=== PATIENT | female | born 1990 | race Caucasian/White ===

== ENCOUNTER → 2022-03-20 12:00 | Outpatient (BNVA) | payer OTHER, SELFPAY | PROVIDERS: Visit Provider Family Medicine | DX: E03.9 Hypothyroidism, unspecified (principal); R53.83 Other fatigue; L98.9 Disorder of the skin and subcutaneous tissue, unspecified; Z79.899 Other long term (current) drug therapy; Z86.32 Personal history of gestational diabetes | CPT/HCPCS: 80053; 80061; 82306; 82607; 83036; 83540; 84439; 84443; 84481; 85025; 85610 ==

== ENCOUNTER → 2022-03-29 18:10 | Outpatient (BNVA) | payer OTHER, SELFPAY | PROVIDERS: PCP Family Medicine; Visit Provider Family Medicine | DX: M25.50 Pain in unspecified joint (principal); R53.83 Other fatigue; M79.7 Fibromyalgia | CPT/HCPCS: 84550; 85025; 85651; 86038; 86431; 86664; 86665 ==

== ENCOUNTER → 2022-07-13 09:30 | Outpatient (BNVA) | payer OTHER, SELFPAY | PROVIDERS: PCP Family Medicine; Visit Provider Family Medicine | DX: E03.9 Hypothyroidism, unspecified (principal); F32.A Depression, unspecified; M25.50 Pain in unspecified joint; M79.7 Fibromyalgia | CPT/HCPCS: 80053; 84443; 84550; 85651; 86038; 86431 ==

== ENCOUNTER → 2022-10-09 09:01 | Outpatient (BNVA) | payer OTHER, SELFPAY | PROVIDERS: PCP Family Medicine; Visit Provider Nurse Practitioner Family | DX: Z20.822 Contact with and (suspected) exposure to COVID-19 (principal); R50.9 Fever, unspecified; U07.1 COVID-19 | CPT/HCPCS: 87400; 87426 ==

== ENCOUNTER → 2022-11-24 12:14 | Outpatient (BNVA) | payer OTHER, SELFPAY | PROVIDERS: PCP Family Medicine; Visit Provider Family Medicine | DX: J32.0 Chronic maxillary sinusitis (principal); M79.7 Fibromyalgia; M10.9 Gout, unspecified | CPT/HCPCS: 84550 ==

== ENCOUNTER → 2023-02-15 09:13 | Outpatient (BNVA) | payer OTHER, SELFPAY | PROVIDERS: PCP Family Medicine; Visit Provider Nurse Practitioner Family | DX: M79.7 Fibromyalgia (principal); E03.9 Hypothyroidism, unspecified; M10.9 Gout, unspecified | CPT/HCPCS: 80053; 82306; 82607; 84443; 84550; 85025 ==

== ENCOUNTER → 2023-03-29 09:24 | Outpatient (BNVA) | payer OTHER, SELFPAY | PROVIDERS: PCP Family Medicine; Visit Provider Nurse Practitioner Family | DX: D72.829 Elevated white blood cell count, unspecified (principal) | CPT/HCPCS: 85025 ==

== ENCOUNTER → 2023-06-06 17:30 | Outpatient (BNVA) | payer OTHER, SELFPAY | PROVIDERS: PCP Family Medicine; Visit Provider Family Medicine | DX: M10.9 Gout, unspecified (principal); M79.2 Neuralgia and neuritis, unspecified; M79.672 Pain in left foot; M79.671 Pain in right foot | CPT/HCPCS: 80053; 82607; 83036; 84443; 84550 ==

== ENCOUNTER → 2023-08-03 12:24 | Outpatient (BNVA) | payer OTHER, SELFPAY | PROVIDERS: PCP Family Medicine; Visit Provider Nurse Practitioner Family | DX: N30.00 Acute cystitis without hematuria (principal); B37.31 Acute candidiasis of vulva and vagina | CPT/HCPCS: 81003 ==

== ENCOUNTER → 2023-10-09 16:23 | Outpatient (BNVA) | payer OTHER, SELFPAY | PROVIDERS: PCP Family Medicine; Visit Provider Family Medicine | DX: R30.0 Dysuria (principal) | CPT/HCPCS: 81000; 81003; 87086 ==

== ENCOUNTER → 2023-10-23 12:00 | Outpatient (BNVA) | payer OTHER, SELFPAY | PROVIDERS: PCP Family Medicine; Visit Provider Family Medicine | DX: R53.83 Other fatigue (principal); E03.9 Hypothyroidism, unspecified; Z86.32 Personal history of gestational diabetes; M79.7 Fibromyalgia | CPT/HCPCS: 82306; 82533; 82607; 83540; 84443; 85025 ==

== ENCOUNTER → 2024-01-31 15:12 | Outpatient (BNVA) | payer OTHER, SELFPAY | PROVIDERS: PCP Family Medicine; Visit Provider Family Medicine | DX: E03.9 Hypothyroidism, unspecified (principal) | CPT/HCPCS: 84443 ==

== ENCOUNTER → 2024-03-07 15:22 | Outpatient (BNVA) | payer OTHER, SELFPAY | PROVIDERS: PCP Family Medicine; Visit Provider Nurse Practitioner Family | DX: R05.9 Cough, unspecified (principal) | CPT/HCPCS: 87426 ==

== ENCOUNTER 2024-06-04 20:00 | Outpatient (CLI) | payer OTHER, SELFPAY | END 2024-06-04 20:01 | disposition home or self-care (01) | LOC: SLEEP 06-05 00:18 | PROVIDERS: PCP Family Medicine; Visit Provider Family Medicine | DX: G47.33 Obstructive sleep apnea (adult) (pediatric) (principal); G47.61 Periodic limb movement disorder | CPT/HCPCS: 95810 ==

== ENCOUNTER 2024-07-04 15:19 | Emergency (ER) | payer OTHER, SELFPAY ==
[2024-07-04 15:36] VITALS: BP 115/74; PULSE 84; RESP 14; TEMP 37; O2SAT 96
--- NOTE | 2024-07-04 15:53 | ED_ITS ---
HPI - General Adult 2 General: Chief complaint: General Medical Stated complaint: pain in left arm.& leg / 20 weeks Time Seen by Provider: 07/04/24 15:25 History of Present Illness: 34-year-old female presents emergency ro om with complaints of an odd sensation in the left arm and the leg. Throbbing pain into the calf pressure sensation. No shortness of breath no chest pain has not really had a headache no vision changes. No history of any strokes she did have preeclampsia issues with her previous and they have her on aspirin daily no recent medication changes she has not had any difficulty with hypertension up to this point. No other specific symptoms or problems. Associated symptoms: Deny chest pain, dyspnea or rash Related Data Home Medications Medication Instructions Recorded Confirmed cariprazine 3 mg capsule (Vraylar) 3 mg PO DAILY 03/20/22 03/07/24 clonazepam 1 mg tablet 1 mg PO TID 03/20/22 03/07/24 Previous Rx's Medication Instructions Recorded albuterol sulfate 90 mcg/actuation 2 puff inhalation QID PRN 10/09/22 aerosol inhaler shortness of breath or wheezing #8.5 grams allopurinol 100 mg tablet 100 mg PO DAILY #30 tabs 11/24/22 fluconazole 150 mg tablet 150 mg PO Q3D 2 doses #2 tabs 08/03/23 sulfamethoxazole 800 1 tab PO BID 7 days #14 tabs 08/03/23 mg-trimethoprim 160 mg tablet (Bactrim DS) phenazopyridine 100 mg tablet 100 mg PO TID #20 tabs 10/09/23 (Pyridium) sulfamethoxazole 800 1 tab PO BID #14 tabs 10/09/23 mg-trimethoprim 160 mg tablet (Bactrim DS) milnacipran 12.5 mg (5)-25 See Rx Instructions PO PER PKG DIR 10/23/23 mg(8)-50mg(42) tablets in a dose #55 ea pack (Savella) pregabalin 150 mg capsule 150 mg PO TID #90 caps 10/23/23 ergocalciferol (vitamin D2) 1,250 1,250 mcg PO .WEEKLY #4 caps 10/31/23 mcg (50,000 unit) capsule milnacipran 50 mg tablet (Savella) 100 mg (2 x 50 mg) PO BID #60 tabs 12/28/23 levothyroxine 75 mcg tablet See Rx Instructions .Route 02/06/24 .COMPLEX #90 tabs ondansetron 4 mg disintegrating 4 mg PO QID PRN nausea and 02/27/24 tablet vomiting #20 tabs Allergies Allergy/AdvReac Type Severity Reaction Status Date / Time Penicillins Allergy Intermediate ALGY-Rash Verified 07/04/24 15:40 Review of Systems 2 Const: Denies: fever(s) or chills Card: Denies: chest pain Resp: Denies: dyspnea GI: Denies: abdominal pain : Denies: dysuria, urinary frequency or urinary urgency Musc: Denies: neck pain or back pain Skin/Breast: Denies: rash PFSH ED 2 PFSH: Medical History Pre-eclampsia in third trimester Hypothyroid Anxiety Depression Hx gestational diabetes Hx of pre-term labor Surgical History History of esophagogastroduodenoscopy (EGD) (~08/2021) Family History Grandfather Cancer lung Grandmother Cancer bladder, colon Father Hypertension Mother Hypertension Denies family history of Diabetes CAD (coronary artery disease) Clotting disorder Psychiatric illness Chronic kidney disease (CKD) Bleeding disorder Stroke Social History Smoking and tobacco/nicotine status: current every day tobacco/nicotine user (vapes) Second hand smoke exposure: No Alcohol intake: current Alcohol intake frequency: holidays/special occasions only Substance/Drug Use: current Substance/Drug use frequency: few times a month Adopted: No Caregiver/support person: Yes Lives independently: Yes Household members: spouse and children Marital status: Highest education level completed: Bachelor's Degree service: No Current occupational status: unemployed Current gender identity: Female Special gerald needs: No Agree to transfusion: Yes Physical Exam 2 Const: GENERAL APPEARANCE: cooperative ORIENTATION/CONSCIOUSNESS: Yes awake, Yes oriented to person, Yes oriented to place and Yes oriented to time HENMT: COMMON NORMALS: normocephalic, atraumatic and hearing grossly normal bilaterally HEAD & SCALP: normocephalic and atraumatic Resp: COMMON NORMALS: normal respiratory effort, No retractions, No use of accessory muscles and clear to auscultation bilaterally AUSCULTATION: clear to auscultation bilaterally Cardio: COMMON NORMALS: regular rate, regular rhythm and No murmurs present (Cardio) RATE: regular rate RHYTHM: regular rhythm GI: COMMON NORMALS: Soft to palpation and No hepatosplenomegaly present A USCULTATION: Yes normoactive bowel sounds PALPATION: Yes Soft to palpation, No Tenderness to palpation present (GI), No Guarding due to palpation present (GI) and Yes No hepatosplenomegaly present Extremity: COMMON NORMALS: normal to inspection, capillary refill normal, no clubbing, cyanosis or edema, no calf tenderness and no pedal edema OTHER: No focal neurologic deficits noted full range of motion in all extremities normal strength dorsoplantar flexion and 5 of 5 in lower extremities neurovascularly distally the extremities are intact. Neuro: SENSORIUM/ORIENTATION: Yes oriented to person, Yes oriented to place and Yes oriented to time OTHER: Abbreviated NIH score is negative. Skin: COMMON NORMALS: no rashes or lesions noted GENERAL SKIN EXAM: no rashes or lesions noted Course 2 Vital Signs: Vital signs: Vital Signs Temperature 98.6 F 07/04/24 15:36 Pulse Rate 75 07/04/24 18:00 Respiratory Rate 16 07/04/24 18:00 Blood Pressure 110/81 07/04/24 18:00 Pulse Oximetry 97 07/04/24 18:00 Oxygen Delivery Me thod Room Air 07/04/24 17:26 MDM - General Adult Medical Decision Making No focal neurologic deficits noted no sign of nerve impingement at this time no sign of stroke. Neurovascular is intact. There is no sign of thrombosis. Will discharge the patient over to OB discussed Dr. Villagran will further evaluate. Patient related that she had a problem with preeclampsia with her previous her blood pressure is good laboratory tests are all normal liver functions kidney function platelets and hemoglobin are all good. She was able to ambulate without difficulty. If this persists she may need to follow-up with her primary care doctor for further evaluation. No emergent findings at this time. Medical Records I reviewed the patient's medical records. Lab Data I reviewed the patient's lab results. 07/04/24 17:30 07/04/24 17:30 Laboratory Results WBC 9.33 10^3/uL (3.29-11.43) 07/04/24 17: RBC 4.24 10^6/uL (3.85-5.65) 07/04/24 17:30 Hgb 11.90 g/dL (11.27-16.99) 07/04/24 17:30 Hct 36.9 % (36-47) 07/04/24 17:30 MCV 87.0 fl (85-98) 07/04/24 17:30 MCH 28.1 pg (27-33) 07/04/24 17: MCHC 32.2 g/dL (30-55) 07/04/24 17:30 RDW 13.7 % (12.1-15.1) 07/04/24 17:30 Plt Count 331 10^3/cmm (157-399) 07/04/24 17:30 MPV 10.4 fL (7.4-10.4) 07/04/24 17:30 Neut % (Auto) 65.1 % 07/04/24 17:30 Lymph % (Auto) 27.0 % 07/04/24 17:30 [place] % (Auto) 7.2 % 07/04/24 17:30 Eos % (Auto) 0.1 % 07/04/24 17:30 Baso % (Auto) 0.2 % 07/04/24 17:30 Neut # (Auto) 6.07 10^3/uL (1.8-7.7) 07/04/24 17:30 Lymph # (Auto) 2.5 10^3/uL (0.8-4.8) 07/04/24 17:30 [place] # (Auto) 0.7 10^3/uL (0.2-0.9) 07/04/24 17:30 Eos # (Auto) 0.0 10^3/uL (0.0-0.8) 07/04/24 17:30 Baso # (Auto) 0.0 10^3/uL (0.0-0.1) 07/04/24 17:30 Nucleated RBC % (auto) 0 % 07/04/24 17: Nucleated RBCs # 0.0 /100WBC 07/04/24 17:30 Sodium 134 mmol/L (136-145) L 07/04/24 17:30 Potassium 4.1 mmol/L (3.5-5.1) 07/04/24 17:30 Chloride 101 mmol/L (98-107) 07/04/24 17: Carbon Dioxide 22 mmol/L (22-29) 07/04/24 17:30 Anion Gap 15.1 (5-19) 07/04/24 17:30 BUN 6 mg/dL (6-20) 07/04/24 17:30 Creatinine 0.6 mg/dL (0.5-0.9) 07/04/24 17:30 GFR Calculation 115.9 mL/min (90-130) 07/04/24 17:30 Glucose 87 mg/dL (65-115) 07/04/24 17:30 Calculated Osmolality 275 mOsm/kg (285-295) L 07/04/24 17:30 Calcium 9.4 mg/dL (8.5-10.5) 07/04/24 17:30 Total Bilirubin 0.2 mg/dL (0.15-1.2) 07/04/24 17:30 AST 14 U/L (0-32) 07/04/24 17:30 ALT 11 U/L (0-33) 07/04/24 17:30 Alkaline Phosphatase 97 U/L (35-105) 07/04/24 17:30 Total Protein 6.4 g/dL (6.6-8.7) L 07/04/24 17:30 Albumin 3.7 g/dL (3.5-5.2) 07/04/24 17:30 Globulin 2.7 g/dL (1.3-4.6) 07/04/24 17:30 Urine Color Yellow (Yellow) 07/04/24 17:00 Urine Appearance Clear (CLEAR) 07/04/24 17:00 Urine pH 6.5 (5-7) 07/04/24 17:00 Ur Specific [place] 1.015 (1.005-1.030) 07/04/24 17:00 Urine Protein Negative (Negative) 07/04/24 17:00 Urine Glucose (UA) Negative (Normal) 07/04/24 17:00 Urine Ketones Negative (Negative) 07/04/24 17:00 Urine Blood Negative (Negative) 07/04/24 17:00 Urine Nitrate Negative (Negative) 07/04/24 17:00 Urine Bilirubin Negative (Negative) 07/04/24 17:00 Urine Urobilinogen 1.0 mg/dL (Negative) 07/04/24 17:00 Ur Leukocyte Esterase Negative (Negative) 07/04/24 17:00 Urine RBC 0-2 /hpf (0-2) 07/04/24 17:00 Urine WBC 0-5 /hpf (0-5) 07/04/24 17:00 Ur Squamous Epith Cells 0-5 /hpf (0-5) 07/04/24 17:00 Amorphous Sediment Not Reportable 07/04/24 17:00 Urine Bacteria None seen /hpf (NONE) 07/04/24 17:00 Hyaline Casts 0.40 /lpf 07/04/24 17:00 No radiology studies performed this visit Discharge Plan Discharge Patient Disposition: Home Clinical Impression: Lower extremity pain Qualifiers: Laterality: left Qualified Code(s): M79.605 - Pain in left leg Upper extremity pain Qualifiers: Laterality: left Qualified Code(s): M79.602 - Pain in left arm Condition: Stable Prescriptions: No Action clonazepam 1 mg tablet 1 mg PO TID Vraylar 3 mg capsule 3 mg PO DAILY sulfamethoxazole-trimethoprim [Bactrim DS] 800-160 mg tablet 1 tab PO BID Qty: 14 0RF phenazopyridine [Pyridium] 100 mg tablet 100 mg PO TID Qty: 20 0RF pregabalin 150 mg capsule 150 mg PO TID Qty: 90 2RF Savella 12.5 mg (5)-25 mg(8)-50 mg(42) tablets,dose pack See Rx Instructions PO PER PKG DIR Qty: 55 0RF Rx Instructions: PO PER PKG DIR ondansetron 4 mg tablet,disintegrating 4 mg PO QID PRN (Reason: nausea and vomiting) Qty: 20 0RF albuterol sulfate 90 mcg/actuation HFA aerosol inhaler 2 puff inhalation QID PRN (Reason: shortness of breath or wheezing) Qty: 8.5 0RF allopurinol 100 mg tablet 100 mg PO DAILY Qty: 30 3RF fluconazole 150 mg tablet 150 mg PO Q3D Qty: 2 0RF Rx Instructions: may repeat second dose 72 hrs after first dose if symptoms persist sulfamethoxazole-trimethoprim [Bactrim DS] 800-160 mg tablet 1 tab PO BID 7 Days Qty: 14 0RF ergocalciferol (vitamin D2) 1,250 mcg (50,000 unit) capsule 1,250 mcg PO .WEEKLY Qty: 4 3RF Rx Instructions: ONE CAP ONCE WEEKLY Savella 50 mg tablet 100 mg PO BID Qty: 60 3RF levothyroxine 75 mcg tablet See Rx Instructions .ROUTE .COMPLEX Qty: 90 1RF Dose Instruction: TAKE ONE TABLET BY MOUTH EVERY DAY Rx Instructions: TAKE ONE TABLET BY MOUTH EVERY DAY Discharge Orders: Discharge ED (Routine); Ordered 07/04/24 Ordered By: Daniel Betancourt Referrals: Shanta Elizabeth MD [Primary Care Provider] - Discharge Diet: Usual diet Discharge Activity: Increase activity as tolerated Patient Instructions: Opioid Safety, Pain Management Activity Restrictions/Additional Instructions: Thank you for choosing [facility] for your healthcare needs today. It is very important that you follow up as instructed or that you return to the Emergency Department should you have concerns or if your condition changes or worsens in any way. You were seen in the emergency room with complaints of left arm and leg pain. On exam there is no indication of thrombosis (clot). Neurologically everything is intact there is no indication of any vascular compromise. There is no indication of stroke. Recommend that you proceed to OB for further evaluation after leaving the emergency room. If symptoms persist follow-up with your primary care doctor. Coding Level of Care Code ED Hardware Engineer for David You
[2024-07-04 16:00] VITALS: BP 136/76; PULSE 74; RESP 18; O2SAT 94
[2024-07-04 17:26] VITALS: BP 124/80; RESP 17; O2SAT 98
[2024-07-04 17:36] LABS: Bilirubin Urine Negative (Negative); Blood Urine Negative (Negative); Glucose Urine UA Negative (Normal); Ketones Urine Negative (Negative); Leukocyte Esterase Urine Negative (Negative); Nitrate Urine Negative (Negative); Protein Urine Negative (Negative); Specific Gravity, Urine 1.015 (1.005-1.030); Urine Appearance Clear (CLEAR); Urine Color Yellow (Yellow); pH Urine 6.5 (5-7)
[2024-07-04 17:41] LABS: Add Urine Microscopic? YES; Bacteria Urine None Seen /hpf; RBC Urine 0-2 /hpf (0-2); Squamous Epithelial Cell Urine 0-5 /hpf (0-5); WBC Urine 0-5 /hpf (0-5)
[2024-07-04 17:43] LABS: Basophils % 0.2 %; Eosinophils % 0.1 %; Hematocrit 36.9 % (36-47); Lymphocytes # 2.5 10^3/uL (0.8-4.8); Mean Corpuscular HGB Conc 32.2 g/dL (30-55); Mean Corpuscular Hemoglobin 28.1 pg (27-33); Mean Platelet Volume 10.4 fL (7.4-10.4); Monocytes # 0.7 10^3/uL (0.2-0.9); Monocytes % 7.2 %; Neutrophils # 6.07 10^3/uL (1.8-7.7); Neutrophils % 65.1 %; Nucleated Red Blood Cells % 0 %; Platelet Count 331 10^3/cmm (157-399); Red Blood Count 4.24 10^6/uL (3.85-5.65); Red Cell Distribution Width 13.7 % (12.1-15.1); White Blood Count 9.33 10^3/uL (3.29-11.43)
[2024-07-04 17:59] LABS: Alanine Aminotransferase 11 U/L (0-33); Albumin Level 3.7 g/dL (3.5-5.2); Alkaline Phosphatase 97 U/L (35-105); Anion Gap 15.1 (5-19); Aspartate Amino Transferase 14 U/L (0-32); Blood Urea Nitrogen 6 mg/dL (6-20); Calcium 9.4 mg/dL (8.5-10.5); Carbon Dioxide 22 mmol/L (22-29); Chloride 101 mmol/L (98-107); Creatinine Clr Calc Pharmacy 127.5757; Globulin 2.7 g/dL (1.3-4.6); Glomerular Filtration Rate 115.9 mL/min (90-130); Glucose 87 mg/dL (65-115); Osmolality Calculated 275 mOsm/kg (285-295); Potassium 4.1 mmol/L (3.5-5.1); Sodium 134 mmol/L (136-145); Total Bilirubin 0.2 mg/dL (0.15-1.2); Total Protein 6.4 g/dL (6.6-8.7)
[2024-07-04 18:00] VITALS: BP 110/81; PULSE 75; RESP 16; O2SAT 97
[2024-07-04 18:39] VITALS: BP 101/72; PULSE 75; O2SAT 99
== END 2024-07-04 18:41 | disposition home or self-care (01) ==
PROVIDERS: Emergency Provider Family Medicine; PCP Family Medicine
DX: M79.605 Pain in left leg (principal); M79.602 Pain in left arm; F17.290 Nicotine dependence, other tobacco product, uncomplicated
CPT/HCPCS: 80053; 81001; 85025; 99283

== ENCOUNTER 2024-07-04 18:38 | Outpatient (CLI) | payer OTHER, SELFPAY ==
[2024-07-04 18:35] VITALS: BMI 27.9
[2024-07-04 18:54] VITALS: BP 118/70; PULSE 66
--- NOTE | 2024-07-04 19:26 | PC.NURSE ---
Iv discontinued from right ac. Bandaid and pressure applied.
== END 2024-07-04 19:27 | disposition home or self-care (01) ==
LOC: OPOB 18:39 → OBGYN 18:40
PROVIDERS: PCP Family Medicine; Visit Provider Obstetrics & Gynecology
DX: O26.899 Other specified pregnancy related conditions, unspecified trimester (principal); Z3A.00 Weeks of gestation of pregnancy not specified
CPT/HCPCS: 99211

== ENCOUNTER 2024-07-14 20:00 | Outpatient (CLI) | payer OTHER, SELFPAY | END 2024-07-14 20:01 | disposition home or self-care (01) | LOC: SLEEP 23:45 | PROVIDERS: PCP Family Medicine; Visit Provider Family Medicine | DX: G47.33 Obstructive sleep apnea (adult) (pediatric) (principal); Z99.89 Dependence on other enabling machines and devices | CPT/HCPCS: 95811 ==

== ENCOUNTER → 2024-11-05 11:21 | Outpatient (BNVA) | payer OTHER, SELFPAY | PROVIDERS: Visit Provider Nurse Practitioner Family | DX: R05.9 Cough, unspecified (principal) | CPT/HCPCS: 87426 ==

== ENCOUNTER 2024-12-01 21:51 | Emergency (ER) | payer OTHER, SELFPAY ==
[2024-12-01 21:54] VITALS: BP 139/85; PULSE 78; RESP 18; TEMP 37.2; BMI 26.6
[2024-12-01 22:51] LABS: Basophils # 0.1 10^3/uL (0.0-0.1); Basophils % 0.6 %; Eosinophils % 0.2 %; Hematocrit 31.2 % (36-47); Lymphocytes # 4.2 10^3/uL (0.8-4.8); Lymphocytes % 33.8 %; Mean Corpuscular HGB Conc 29.8 g/dL (30-55); Mean Corpuscular Hemoglobin 24.9 pg (27-33); Mean Corpuscular Volume 83.4 fl (85-98); Mean Platelet Volume 9.1 fL (7.4-10.4); Monocytes # 0.7 10^3/uL (0.2-0.9); Monocytes % 5.3 %; Neutrophils # 7.44 10^3/uL (1.8-7.7); Neutrophils % 59.7 %; Nucleated Red Blood Cells % 0 %; Platelet Count 595 10^3/cmm (157-399); Red Blood Count 3.74 10^6/uL (3.85-5.65); Red Cell Distribution Width 17.1 % (12.1-15.1); White Blood Count 12.44 10^3/uL (3.29-11.43)
[2024-12-01 23:12] LABS: Alanine Aminotransferase 13 U/L (0-33); Albumin Level 3.9 g/dL (3.5-5.2); Alkaline Phosphatase 238 U/L (35-105); Aspartate Amino Transferase 15 U/L (0-32); Blood Urea Nitrogen 14 mg/dL (6-20); Calcium 9.2 mg/dL (8.5-10.5); Carbon Dioxide 24 mmol/L (22-29); Chloride 102 mmol/L (98-107); Globulin 3.6 g/dL (1.3-4.6); Glucose 89 mg/dL (65-115); Osmolality Calculated 288 mOsm/kg (285-295); Sodium 139 mmol/L (136-145); Total Bilirubin 0.2 mg/dL (0.15-1.2); Total Protein 7.5 g/dL (6.6-8.7)
--- NOTE | 2024-12-01 23:21 | USR_ITS ---
PROCEDURE INFORMATION: Exam: US Pelvis Transabdominal, Limited, and US Pelvis Transvaginal, Non-Obstetric Exam date and time: 12/01/2024 11:28 PM Age: 34 years old Clinical indication: Other: G2-p2 2 weeks post- with non-stop vaginal bleeding. ; Additional info: Worsening vag bleeding 13 days post delivery, ? retrained placenta TECHNIQUE: Imaging protocol: Real-time transabdominal and transvaginal pelvic ultrasound (non-obstetric) with image documentation. Transabdominal imaging is limited. Transvaginal imaging was used for better evaluation of the endometrium, adnexa, and/or cervix. COMPARISON: No relevant prior studies available. FINDINGS: Uterus: Focal area of increased vascularity along the anterior aspect of the uterus adjacent to the endometrium concerning for retained products of conception. Nonvascular complex debris within the endometrium is thought to represent blood products. Right ovary/adnexa: Normal. No mass. Normal ovarian blood flow on color Doppler. Left ovary/adnexa: Normal. No mass. Normal ovarian blood flow on color Doppler. Urinary bladder: Urinary bladder is limited. Intraperitoneal space: No free fluid. US/US pelvis lmt w transvag IMPRESSION: 1. Focal area of increased vascularity along the anterior aspect of the uterus adjacent to the endometrium concerning for retained products of conception. 2. Nonvascular complex debris within the endometrium is thought to represent blood products.
[2024-12-01 23:31] VITALS: BP 132/88; PULSE 68; O2SAT 100
[2024-12-02] VITALS: BP 152/105; PULSE 77; RESP 21; O2SAT 94
[2024-12-02 01:09] LABS: HCG, Serum Qual Positive (Negative)
[2024-12-02 01:24] VITALS: BP 132/88; PULSE 68; O2SAT 97
[2024-12-02 01:34] VITALS: BP 132/88; PULSE 69; O2SAT 97
[2024-12-02 01:52] LABS: HCG Quantitative 15.69 mIU/mL
[2024-12-02] MEDS: miSOPROStol 200 mcg Tablet PO (02:20)
--- NOTE | 2024-12-02 02:37 | W.ED.GENADLT ---
HPI - General Adult General: Chief complaint: Vaginal Bleeding Stated complaint: vaginal bleeding 13 days pp, dizzy, chills Time Seen by Provider: 12/01/24 23:03 History of Present Illness: Patient is a healthy appearing 34-year-old female who just had her second baby vaginally 13 days ago seen for vaginal bleeding, cramping, and lightheadedness. She states that she feels of the bleeding is somewhat worse today than yesterday and that she felt lightheaded when she stood up prompting visit to the emergency department. She denies fever, chest pain, shortness of breath associated with the symptoms. Baby is doing well. She denies dysuria and frequency and has no diarrhea. She states that she has changed her pad 4 times today when urinating and each time there was some blood and clots on the pad. She complains of intermittent. Like cramping in the pelvic region. Patient notes that her delivery and OB commented that delivering her placenta required more traction than typical and was somewhat painful. She is concerned about retained products of conception. Related Data Home Medications ?Medication ?Instructions ?Recorded ?Confirmed cariprazine 3 mg capsule (Vraylar) 3 mg PO DAILY 03/20/22 11/09/24 clonazepam 1 mg tablet 1 mg PO TID 03/20/22 11/09/24 Previous Rx's ?Medication ?Instructions ?Recorded albuterol sulfate 90 mcg/actuation 2 puff inhalation QID PRN 10/09/22 aerosol inhaler shortness of breath or wheezing #8.5 grams allopurinol 100 mg tablet 100 mg PO DAILY #30 tabs 11/24/22 phenazopyridine 100 mg tablet 100 mg PO TID #20 tabs 10/09/23 (Pyridium) milnacipran 12.5 mg (5)-25 See Rx Instructions PO PER PKG DIR 10/23/23 mg(8)-50mg(42) tablets in a dose #55 ea pack (Savella) pregabalin 150 mg capsule 150 mg PO TID #90 caps 10/23/23 ergocalciferol (vitamin D2) 1,250 1,250 mcg PO .WEEKLY #4 caps 10/31/23 mcg (50,000 unit) capsule milnacipran 50 mg tablet (Savella) 100 mg (2 x 50 mg) PO BID #60 tabs 12/28/23 levothyroxine 75 mcg tablet See Rx Instructions .Route 02/06/24 .COMPLEX #90 tabs ondansetron 4 mg disintegrating 4 mg PO QID PRN nausea and 02/27/24 tablet vomiting #20 tabs azithromycin 250 mg tablet See Rx Instructions PO .COMPLEX #6 11/09/24 tabs Allergies Allergy/AdvReac Type Severity Reaction Status Date / Time Penicillins Allergy Intermediate ALGY-Rash Verified 11/09/24 12:51 PFSH ED PFSH: Medical History Pre-eclampsia in third trimester Hypothyroid Anxiety Depression Hx gestational diabetes Hx of pre-term labor Surgical History History of esophagogastroduodenoscopy (EGD) (~08/2021) Family History Grandfather Cancer lung Grandmother Cancer bladder, colon Father Hypertension Mother Hypertension Denies family history of Diabetes CAD (coronary artery disease) Clotting disorder Psychiatric illness Chronic kidney disease (CKD) Bleeding disorder Stroke Social History Smoking and tobacco/nicotine status: former use of tobacco/nicotine (vapes) Second hand smoke exposure: No Alcohol intake: current Alcohol intake frequency: holidays/special occasions only Substance/Drug Use: current Substance/Drug use frequency: few times a month Adopted: No Caregiver/support person: Yes Lives independently: Yes Household members: spouse and children Marital status: Highest education level completed: Bachelor's Degree service: No Current occupational status: unemployed Current gender identity: Female Special gerald needs: No Agree to transfusion: Yes Physical Exam Const: COMMON NORMALS: no acute distress, patient oriented x3 and alert HENMT: COMMON NORMALS: normocephalic and atraumatic HEAD & SCALP: normocephalic and atraumatic Eye: COMMON NORMALS: Equal, round and reactive pupils present, EOMs intact bilaterally and no scleral icterus PUPIL: Yes Equal, round and reactive pupils present Resp: COMMON NORMALS: normal respiratory effort and No retractions Cardio: COMMON NORMALS: regular rate, regular rhythm and No murmurs present (Cardio) RATE: regular rate RHYTHM: regular rhythm GI: COMMON NORMALS: Normal to inspection, nondistended, normoactive bowel sounds present, Soft to palpation and non-tender PALPATION: Yes Soft to palpation Neuro: COMMON NORMALS: patient oriented x3 SENSORIUM/ORIENTATION: Yes alert Skin: COMMON NORMALS: no rashes or lesions noted GENERAL SKIN EXAM: no rashes or lesions noted Course Vital Signs: Vital signs: Vital Signs Temperature 98.9 F 12/01/24 21:54 Pulse Rate 69 12/02/24 01:34 Respiratory Rate 21 H 12/02/24 00:00 Blood Pressure 132/88 12/02/24 01:34 Pulse Oximetry 97 12/02/24 01:34 Oxygen Delivery Me thod Room Air 12/01/24 21:54 MDM - General Adult Medical Decision Making In summary, patient is a generally well-appearing 34-year-old female seen for vaginal bleeding 13 days post vaginal delivery. hCG level is 15. Ultrasound shows possible retained products of conception. I spoke with on-call DIRECTOR REGULATORY AGENCY who discussed giving Cytotec and close follow-up to her primary DIRECTOR REGULATORY AGENCY. I agree this is reasonable. Vital signs remained stable and hemoglobin is 9.8 and she is not briskly bleeding. She will be discharged in stable and improved condition knowing that she is always welcome back in the emergency department if symptoms get worse but otherwise will follow-up with her DIRECTOR REGULATORY AGENCY in clinic Lab Data 12/01/24 22:43 12/01/24 22:43 Radiology Impressions Pelvic/Transvag US 12/01/24 23:21 IMPRESSION: 1. Focal area of increased vascularity along the anterior aspect of the uterus adjacent to the endometrium concerning for retained products of conception. 2. Nonvascular complex debris within the endometrium is thought to represent blood products. Laboratory Results WBC 12.44 10^3/uL (3.29-11.43) H 12/01/24 22:43 RBC 3.74 10^6/uL (3.85-5.65) L 12/01/24 22:43 Hgb 9.30 g/dL (11.27-16.99) L 12/01/24 22:43 Hct 31.2 % (36-47) L 12/01/24 22:43 MCV 83.4 fl (85-98) L 12/01/24 22:43 MCH 24.9 pg (27-33) L 12/01/24 22:43 MCHC 29.8 g/dL (30-55) L 12/01/24 22:43 RDW 17.1 % (12.1-15.1) H 12/01/24 22:43 Plt Count 595 10^3/cmm (157-399) H 12/01/24 22:43 MPV 9.1 fL (7.4-10.4) 12/01/24 22:43 Neut % (Auto) 59.7 % 12/01/24 22:43 Lymph % (Auto) 33.8 % 12/01/24 22:43 Sac % (Auto) 5.3 % 12/01/24 22:43 Eos % (Auto) 0.2 % 12/01/24 22:43 Baso % (Auto) 0.6 % 12/01/24 22:43 Neut # (Auto) 7.44 10^3/uL (1.8-7.7) 12/01/24 22:43 Lymph # (Auto) 4.2 10^3/uL (0.8-4.8) 12/01/24 22:43 Sac # (Auto) 0.7 10^3/uL (0.2-0.9) 12/01/24 22:43 Eos # (Auto) 0.0 10^3/uL (0.0-0.8) 12/01/24 22:43 Baso # (Auto) 0.1 10^3/uL (0.0-0.1) 12/01/24 22:43 Nucleated RBC % (auto) 0 % 12/01/24 22:43 Nucleated RBCs # 0.0 /100WBC 12/01/24 22:43 Sodium 139 mmol/L (136-145) 12/01/24 22:43 Potassium 4.0 mmol/L (3.5-5.1) 12/01/24 22:43 Chloride 102 mmol/L (98-107) 12/01/24 22:43 Carbon Dioxide 24 mmol/L (22-29) 12/01/24 22:43 Anion Gap 17.0 (5-19) 12/01/24 22:43 BUN 14 mg/dL (6-20) 12/01/24 22:43 Creatinine 0.7 mg/dL (0.5-0.9) 12/01/24 22:43 GFR Calculation 97.0 mL/min (90-130) 12/01/24 22:43 Glucose 89 mg/dL (65-115) 12/01/24 22:43 Calculated Osmolality 288 mOsm/kg (285-295) 12/01/24 22:43 Calcium 9.2 mg/dL (8.5-10.5) 12/01/24 22:43 Total Bilirubin 0.2 mg/dL (0.15-1.2) 12/01/24 22:43 AST 15 U/L (0-32) 12/01/24 22:43 ALT 13 U/L (0-33) 12/01/24 22:43 Alkaline Phosphatase 238 U/L (35-105) H 12/01/24 22:43 Total Protein 7.5 g/dL (6.6-8.7) 12/01/24 22:43 Albumin 3.9 g/dL (3.5-5.2) 12/01/24 22:43 Globulin 3.6 g/dL (1.3-4.6) 12/01/24 22:43 HCG, Qual Positive (Negative) H 12/01/24 22:43 Ser , Semi-Qnt 15.69 mIU/mL 12/01/24 22:43 All radiology interpretation(s) finalized by discharge Discharge Plan Discharge Patient Disposition: Home Clinical Impression: hemorrhage of vagina Condition: Stable Prescriptions: No Action clonazepam 1 mg tablet 1 mg PO TID Vraylar 3 mg capsule 3 mg PO DAILY phenazopyridine [Pyridium] 100 mg tablet 100 mg PO TID Qty: 20 0RF pregabalin 150 mg capsule 150 mg PO TID Qty: 90 2RF Savella 12.5 mg (5)-25 mg(8)-50 mg(42) tablets,dose pack See Rx Instructions PO PER PKG DIR Qty: 55 0RF Rx Instructions: PO PER PKG DIR ondansetron 4 mg tablet,disintegrating 4 mg PO QID PRN (Reason: nausea and vomiting) Qty: 20 0RF azithromycin 250 mg tablet See Rx Instructions PO .COMPLEX Qty: 6 0RF Rx Instructions: For 250 mg dose pack: take 500 mg today (day 1), then 250 mg for 4 days (days 2-5) PO albuterol sulfate 90 mcg/actuation HFA aerosol inhaler 2 puff inhalation QID PRN (Reason: shortness of breath or wheezing) Qty: 8.5 0RF allopurinol 100 mg tablet 100 mg PO DAILY Qty: 30 3RF ergocalciferol (vitamin D2) 1,250 mcg (50,000 unit) capsule 1,250 mcg PO .WEEKLY Qty: 4 3RF Rx Instructions: ONE CAP ONCE WEEKLY Savella 50 mg tablet 100 mg PO BID Qty: 60 3RF levothyroxine 75 mcg tablet See Rx Instructions .ROUTE .COMPLEX Qty: 90 1RF Dose Instruction: TAKE ONE TABLET BY MOUTH EVERY DAY Rx Instructions: TAKE ONE TABLET BY MOUTH EVERY DAY Discharge Orders: Discharge ED (Routine); Ordered 12/02/24 Ordered By: Rupesh Fam Referrals: Desmond Ortega DO [Primary Care Provider] - Discharge Diet: Advance as tolerated Discharge Activity: Increase activity as tolerated Patient Instructions: Hemorrhage (DC) Activity Restrictions/Additional Instructions: Your blood levels are safe and you do not require a transfusion at this time. You do not appear to have an infection in your uterus requiring immediate dilation and curettage. As we discussed, most likely this will resolve without need for any further intervention. Please follow-up with your DIRECTOR REGULATORY AGENCY doctor at your convenience in the next few days to make sure they agree with the plan. You can tell them that your hemoglobin level is 9.8, white blood cell count was 12,000, and you have no fever and heart rate is in the 60s with stable blood pressure. Print Language: Austrian Coding Level of Care Code ED [facility] Attendant for David You
[2024-12-02 02:40] VITALS: BP 126/84; PULSE 73; O2SAT 96
== END 2024-12-02 02:23 | disposition home or self-care (01) ==
PROVIDERS: Emergency Provider Student in an Organized Health Care Education/Training Program; PCP Family Medicine
DX: O72.1 Other immediate postpartum hemorrhage (principal); Z87.891 Personal history of nicotine dependence
CPT/HCPCS: 36415; 76830; 76857; 80053; 84702; 84703; 85025; 99284; J9999

== ENCOUNTER → 2025-02-25 09:19 | Outpatient (BNVA) | payer OTHER, SELFPAY | PROVIDERS: PCP Family Medicine; Visit Provider Family Medicine | DX: Z86.32 Personal history of gestational diabetes (principal); E03.9 Hypothyroidism, unspecified; R19.7 Diarrhea, unspecified; M10.9 Gout, unspecified; M79.7 Fibromyalgia; R51.9 Headache, unspecified; M54.12 Radiculopathy, cervical region; G47.33 Obstructive sleep apnea (adult) (pediatric); R53.83 Other fatigue; M19.90 Unspecified osteoarthritis, unspecified site | CPT/HCPCS: 80053; 82306; 82607; 84436; 84443; 84481; 84550; 85025 ==

== ENCOUNTER 2025-03-06 13:14 | Outpatient (CLI) | payer OTHER, SELFPAY ==
--- NOTE | 2025-03-06 13:23 | XRR_ITS ---
PROCEDURE INFORMATION: Exam: XR Cervical Spine Exam date and time: 03/06/2025 1:30 PM Age: 35 years old Clinical indication: Other: Headache; Neck pain that radiates up back of head & down lt arm x 2 months. ; Additional info: R51.9 - headache, unspecified TECHNIQUE: Imaging protocol: Radiologic exam of the cervical spine. Views: 2 or 3 views. COMPARISON: No relevant prior studies available. FINDINGS: Bones/joints: Cervical vertebral body heights appear maintained, as do disc spaces. Straightening of the cervical curvature is seen on the lateral view. Alignment is otherwise unremarkable. No fracture or compression deformity is seen. No subluxation identified. No acute osseous abnormality. Soft tissues: Paravertebral soft tissues appear unremarkable. XR/XR cervical spine 3V* [id number] IMPRESSION: Straightening of the cervical curvature on the lateral view. This can be associated with muscle spasm/tension. Exam is otherwise unremarkable.
[2025-03-06 13:56] LABS: Ferritin 8 ng/mL (15-150); Iron 22 ug/dL (37-145)
== END 2025-03-06 13:15 | disposition home or self-care (01) ==
PROVIDERS: PCP Family Medicine; Visit Provider Family Medicine
DX: R51.9 Headache, unspecified (principal); M54.12 Radiculopathy, cervical region; D64.9 Anemia, unspecified
CPT/HCPCS: 36415; 72040; 82728; 83540

== ENCOUNTER → 2025-06-05 09:11 | Outpatient (BNVA) | payer OTHER, SELFPAY | PROVIDERS: PCP Family Medicine; Visit Provider Family Medicine | DX: D50.9 Iron deficiency anemia, unspecified (principal) | CPT/HCPCS: 82728; 83540; 85025 ==